=== PATIENT | male | born 1970 | race Caucasian/White ===

== ENCOUNTER 2022-02-26 16:10 | Emergency (ER) | payer OTHER, SELFPAY ==
[2022-02-26 16:11] VITALS: BP 142/90; PULSE 78; RESP 17; TEMP 36.3; O2SAT 99; BMI 30.9
[2022-02-26 16:29] VITALS: BP 172/94; PULSE 83; RESP 19; O2SAT 98
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
[2022-02-26] MEDS: Diphth,Pertuss(Acell),Tet Vac 0.5 ML Vial IM (17:11)
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
[2022-02-26 17:32] LABS: Prothrombin Time (Protime)PT. 12.8 SECONDS (11.7-14.9)
[2022-02-26 17:33] LABS: Absolute Lymphocyte Count 3.72 X10^3/uL (0.83-4.51); Absolute Neutrophil Count 5.2 X10^3/uL (2.0-7.7); Basophil# 0.12 X10^3/uL; Basophil% 1.1 % (0-1); Eosinophil# 0.33 X10^3/uL; Eosinophils% 3.1 % (0-5); Hematocrit 49.5 % (40-54); Hemoglobin 17.3 g/dL (13.0-16.5); Lymphocyte # 3.72 X10^3/ul (0.83-4.51); Lymphocyte % 34.6 % (19-41); Mean Corp Hgb Conc 34.9 g/dL (32-36); Mean Corpuscular Hgb 30.8 pg (27.0-32.0); Mean Corpuscular Volume 88.1 fL (80-94); Mean Platelet Vol. 8.6 fl (6.2-12.0); Monocyte# 1.26 X10^3/uL; Monocyte% 11.7 % (0-10); NRBC Flagged by Analyzer 0 % (0-5); Neutrophil # 5.23 X10^3/uL (2.7-7.7); Neutrophil % 48.6 % (47-70); Partial Thromboplast Time 28.4 Seconds (24.1-36.2); Platelet Count 356 K/mm3 (150-450); RBC Distribution Width CV 12.2 % (11.6-14.6); RBC Distribution Width SD 39.8 fl (35.1-43.9); Red Blood Count 5.62 M/mm3 (4.6-6.2); White Blood Count 10.8 K/mm3 (4.4-11.0)
[2022-02-26 17:36] VITALS: BP 162/90
[2022-02-26 17:37] LABS: Anion Gap 8 (5-15); BUN 12 mg/dL (7-18); BUN/Creat Ratio 9.5 RATIO (10-20); Calcium,Total 8.7 mg/dL (8.5-10.1); Chloride 106 mmol/L (98-107); Creatinine, Serum 1.26 mg/dL (0.70-1.30); EST Glomerular Filtration Rate 64 mL/min (>60); Est Glom Filt Rate - Afr Amer 77 mL/min (>60); Estimated Creatinine Clearance 70.01 ml/min; Glucose 86 mg/dL (74-106); Potassium 3.3 mmol/L (3.5-5.1); Sodium Level 142 mmol/L (136-145)
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
[2022-02-26] MEDS: fentaNYL 100 MCG/2 ML Ampul 25 MCG IV (20:17)
[2022-02-26 20:37] VITALS: BP 137/107; PULSE 82; RESP 16; O2SAT 96
--- NOTE | 2022-02-26 20:41 | CT_ITS ---
COMPUTED TOMOGRAPHY OF THE RIGHT ANKLE AND FOOT WITHOUT CONTRAST ENHANCEMENT 2042 HOURS ON 02/26/2022: CLINICAL: ankle fracture -- include ankle and foot on right PROCEDURE: A helical CT of the right ankle and foot were performed without contrast enhancement redemonstrated in the axial, coronal, sagittal projections and osseous and soft tissue algorithms. FINDINGS: There is a vertical line and the anterior portion of the epiphysis of the distal tibia that probably represents a nutrient vessel, rather than a fracture. There is no evidence of other medial, lateral, or posterior malleolar fractures. The ankle mortise is balanced. The distal tibia and fibula have a normal appearance. The talus has a normal appearance and is without evidence of fracture. There is mild widening of the talar/calcaneal joint. There is an extensive comminuted fracture of the calcaneus with at least 9 pieces. 3 fractures enter the talar-calcaneal joint. The tarsonavicular and other talar bones have normal appearance. The metatarsals and phalanges are normal. There is soft tissue swelling surrounding the calcaneus. CT/Extremity Lower without Contra IMPRESSION: 1. Presence of a lucent line in the anterior aspect of the distal right tibial epiphysis--most likely representing a nutrient vessel. 2. No evidence of fractures of the medial, lateral, and posterior malleoli. Balanced ankle mortise. 3. Extensively comminuted fracture of the calcaneus (at least 9 pieces) with 3 fracture lines entering the talar calcaneal joint. 4. Widening of the talocalcaneal joint. 5. Normal talar bone. 6. The remaining tarsal bones, metatarsals, and phalangeal bones are normal. 7. Significant soft tissue swelling surrounding the calcaneus. Electronically Signed: Paul Hudson MD at 21:32 EDT ,
[2022-02-26] MEDS: oxyCODONE 5 MG Tablet PO (22:00)
--- NOTE | 2022-02-26 22:10 | ED.RN ---
radiology disc given to pt.. disc contains ankel xray,ct of brain, cervical spine and lower extremity results.
== END 2022-02-26 23:04 | disposition home or self-care (01) ==
PROVIDERS: Emergency Provider Emergency Medicine; Visit Provider Emergency Medicine
DX: S93.401A Sprain of unspecified ligament of right ankle, initial encounter (principal); S80.811A Abrasion, right lower leg, initial encounter; Z87.891 Personal history of nicotine dependence; S90.122A Contusion of left lesser toe(s) without damage to nail, initial encounter; S92.009A Unspecified fracture of unspecified calcaneus, initial encounter for closed fracture; S80.812A Abrasion, left lower leg, initial encounter; Z23 Encounter for immunization; V23.4XXA Motorcycle driver injured in collision with car, pick-up truck or van in traffic accident, initial encounter
CPT/HCPCS: 70450; 71260; 72125; 73610; 73700; 74177; 80048; 82077; 85025; 85610; 85730; 90715; 93005; 99285; Q9967; A4216